=== PATIENT | female | born 1985 | race Caucasian/White ===

== ENCOUNTER → 2018-10-09 | Emergency (ER) | payer OTHER ==
[~2018-10-09] VITALS: Ht 165.1 cm; Wt 61.2 kg
[~2018-10-09] MED LIST: PRENATAL + DHA1 EAC1 PO
== END | disposition home or self-care (01) ==
LOC: ER 15:39 → EDBD 15:40
DX: O20.0 Threatened abortion (principal)

== ENCOUNTER 2019-05-09 09:44 | Outpatient (CLI) | payer OTHER | END 2019-05-09 11:59 | disposition home or self-care (01) | LOC: NST 09:44 | DX: Z34.83 Encounter for supervision of other normal pregnancy, third trimester (principal) ==

== ENCOUNTER 2019-05-11 11:07 | Inpatient (IN) | payer OTHER ==
[~2019-05-11] VITALS: Ht 165.1 cm; Wt 77.6 kg
== END 2019-06-14 13:06 | disposition home or self-care (01) | DRG 807 ==
LOC: OB/GYN 05-21 12:15 → SURG-SUITE 06-11 21:26 → LDR 06-11 21:26 → SURG-SUITE 06-12 15:12 → OB/GYN 06-13 12:15 → SURG-SUITE 06-14 13:06
PROVIDERS: ADMIT Obstetrics & Gynecology
PROC: 4A1HXCZ Monitoring of Products of Conception, Cardiac Rate, External Approach (ICD-10-PCS; 2019-06-11)
PROC: 10D07Z6 Extraction of Products of Conception, Vacuum, Via Natural or Artificial Opening (ICD-10-PCS; principal; 2019-06-12)
PROC: 0W8NXZZ Division of Female Perineum, External Approach (ICD-10-PCS; 2019-06-12)
PROC: 4A033R1 Measurement of Arterial Saturation, Peripheral, Percutaneous Approach (ICD-10-PCS; 2019-06-12)
DX: O66.5 Attempted application of vacuum extractor and forceps (principal); Z37.0 Single live birth; Z3A.39 39 weeks gestation of pregnancy

== ENCOUNTER 2019-06-08 09:26 | Outpatient (CLI) | payer OTHER | END 2019-06-08 10:20 | disposition home or self-care (01) | LOC: NST 09:26 | DX: Z34.83 Encounter for supervision of other normal pregnancy, third trimester (principal) ==

== ENCOUNTER 2019-06-11 10:01 | Outpatient (CLI) | payer OTHER | END 2019-06-11 11:02 | disposition home or self-care (01) | LOC: NST 10:01 | DX: Z34.83 Encounter for supervision of other normal pregnancy, third trimester (principal) ==

== ENCOUNTER 2022-06-08 14:15 | Inpatient (IN) | payer OTHER ==
[~2022-06-08] VITALS: Ht 165.1 cm; Wt 77.1 kg
[2022-06-11] MEDS ORDERED: IRON PO (23:22)
== END 2022-06-13 12:31 | disposition home or self-care (01) | DRG 807 ==
LOC: EDSTATUS 14:15 → LDR 06-11 23:00 → OB/GYN 06-11 23:00
PROVIDERS: ADMIT Obstetrics & Gynecology; ATTEND Obstetrics & Gynecology
PROC: 10E0XZZ Delivery of Products of Conception, External Approach (ICD-10-PCS; principal; 2022-06-11)
PROC: 0KQM0ZZ Repair Perineum Muscle, Open Approach (ICD-10-PCS; 2022-06-11)
PROC: 4A1HXCZ Monitoring of Products of Conception, Cardiac Rate, External Approach (ICD-10-PCS; 2022-06-11)
DX: O70.1 Second degree perineal laceration during delivery (principal); Z37.0 Single live birth; Z3A.39 39 weeks gestation of pregnancy; Z20.822 Contact with and (suspected) exposure to COVID-19